=== PATIENT | female | born 1995 | race African-American/Black ===

== ENCOUNTER 2021-07-31 07:59 | Emergency (ER) | payer SELFPAY ==
[~2021-07-31] VITALS: Ht 167.6 cm; Wt 97.5 kg
[~2021-07-31 07:59] MED LIST: BIRTH CONTRO; MACROBID 100 M100 MG PO
[2021-07-31 08:20] LABS: CLARITY,URINE CLEAR (CLEAR); COLOR,URINE YELLOW (YELLOW); KETONES,URINE NEGATIVE (NEGATIVE); LEUKOCYTE ESTERASE ,URINE NEGATIVE (NEGATIVE); NITRITE,URINE NEGATIVE (NEGATIVE); PROTEIN,URINE DIPSTICK NEGATIVE (NEGATIVE); URINE UROBILINOGEN 1 mg/dL (0.2 - 1)
[2021-07-31 08:55] LABS: BACTERIA,URINE FEW /HPF; EPITHELIAL CELLS,URINE FEW /LPF; RBC,URINE 0-5 /HPF (0-5); WBC,URINE (MAN) 0-5 /HPF (0-5)
[2021-07-31] MEDS ORDERED: IBUPROFEN600 MG PO (09:18)
== END 2021-07-31 10:02 | disposition home or self-care (01) ==
LOC: ER 08:20
DX: N93.8 Other specified abnormal uterine and vaginal bleeding (principal)
CPT/HCPCS: 81001; 81025; 99283

== ENCOUNTER 2021-11-02 19:26 | Emergency (ER) | payer SELFPAY ==
[~2021-11-02] VITALS: Ht 167.6 cm; Wt 97.5 kg
[~2021-11-02 19:26] MED LIST changes: +IBUPROFEN600 MG PO
[2021-11-02 20:11] LABS: CLARITY,URINE CLEAR (CLEAR); COLOR,URINE YELLOW (YELLOW); KETONES,URINE NEGATIVE (NEGATIVE); LEUKOCYTE ESTERASE ,URINE NEGATIVE (NEGATIVE); NITRITE,URINE NEGATIVE (NEGATIVE); PROTEIN,URINE DIPSTICK NEGATIVE (NEGATIVE); URINE UROBILINOGEN 4 mg/dL (0.2 - 1)
[2021-11-02 20:18] LABS: BACTERIA,URINE RARE /HPF; EPITHELIAL CELLS,URINE FEW /LPF
== END 2021-11-02 21:00 | disposition home or self-care (01) ==
LOC: ER 19:38
DX: O20.0 Threatened abortion (principal)
CPT/HCPCS: 36415; 81001; 81025; 84702; 99284